=== PATIENT | male | born 1980 | race Caucasian/White ===

== ENCOUNTER 2019-08-31 22:58 | Observation (INO) | payer SELFPAY ==
--- NOTE | 2019-08-31 23:03 | XR_ITS ---
WS: [id number] CHEST XRAY TECHNIQUE: Portable chest. CLINICAL INFORMATION: cough/congestion COMPARISON: January 27, 2019 FINDINGS: Heart: Cardiomegaly. Lungs: Lungs are clear. No consolidation or pleural effusion. Bones: Normal visualized bony structures. XR/XR chest 1V portable [id number] IMPRESSION: Cardiomegaly. Chest otherwise unremarkable.
--- NOTE | 2019-08-31 23:03 | ECG_ITS ---
Measurements Intervals [place] Rate: 100 P: 46 PA: 178 QRS: 29 QRSD: 110 T: 97 QT: 364 QTc: 471 SINUS TACHYCARDIA POSSIBLE LEFT ATRIAL ENLARGEMENT [-0.1mV P WAVE IN V1/V2] NONSPECIFIC T-WAVE ABNORMALITY Compared to ECG 01/27/2019 20:29:06 Sinus rhythm no longer present T-wave abnormality still present Electronically Signed On 09-02-2019 6:38:36 CDT by Arpit Naik M.D. [id number]
--- NOTE | 2019-08-31 23:10 | USCV_ITS ---
Sanjeev Gupta Age: 39 Gender: M : 1980 Exam Date: 08/31/2019 23:42 Ordering Phys: Gela Avila DO Technologist: Nadira Kaur [place] [facility] [place]: PAIN RT HIP. SWELLING HISTORY: Pain Rt hip with swelling PROCEDURES: The venous duplex Doppler examination of both lower extremities was performed in the standard fashion. The following venous structures were evaluated: common femoral vein, profunda vein, proximal portion of the greater saphenous vein, superficial femoral vein, and the popliteal vein. In addition, the posterior tibial and peroneal trunk were evaluated. Serial compression, augmentation maneuvers, and spectral Doppler flow evaluation were performed. FINDINGS: No DVT seen in any vessel examined CONCLUSIONS No evidence of right lower extremity DVT. No evidence of left lower extremity DVT. James Blanco MD (Electronically Signed) Final Date: 01 September 2019 09:04 S
[2019-08-31 23:11] VITALS: BP 197/139; PULSE 108; RESP 20; TEMP 36; O2SAT 97; BMI 29.8
--- NOTE | 2019-08-31 23:11 | W.ED.SOB ---
HPI - SOB/Dyspnea General: Chief Complaint: Shortness of Breath/Dyspnea Stated Complaint: cp Time Seen by Provider: 08/31/19 23:06 History of Present Illness: HPI Narrative: Sanjeev is a 39-year-old male who comes in complaining of shortness of breath. He states he has a history of congestive heart failure but he is uncertain what the cause was. He states he has orthopnea and dyspnea on exertion. He denies any chest pain. He has a cough productive of brown phlegm which he states is his chronic smoker's cough. He does have increased leg pain and swelling more so the right leg than the left. Patient states he is not been on medicines for his high blood pressure and probably 6 months or more. Associated symptoms: Deny abdominal pain, chest congestion, chest pain, diaphoresis, dizziness, extremity pain, fever(s), hemoptysis, nausea, orthopnea, palpitations, polydipsia, syncope or vomiting Review of Systems General: Reports: other (negative unless marked) Const: Denies: fever, chills, body aches, fatigue, malaise or diaphoresis Eyes: Denies: change in vision or blurry vision ENMT: Denies: throat pain, painful swallowing, hoarseness, ear pain, ear discharge, Change in hearing or nasal discharge Card: Denies: chest pain, palpitations, irregular heart rhythm, syncope, pre-syncope, shortness of breath on exertion or shortness of breath when lying down Resp: Reports: shortness of breath and productive cough; Denies: non-productive cough, wheezing, coughing up blood or chest congestion GI: Denies: abdominal pain, nausea, vomiting, vomiting blood, coffee grounds in vomit, diarrhea, constipation, cramping, blood in stool or black tarry stool : Denies: flank pain, difficulty urinating, painful urination, urinary frequency, urinary urgency, decreased urine ouput, urinary incontinence or blood in urine Musc: Denies: neck pain, back pain, extremity pain, extremity swelling, joint pain, joint swelling, joint warmth or joint stiffness Skin/Breast: Denies: rash, skin tenderness or yellow skin Neuro: Denies: headache, numbness in extremities, weakness in extremities, changes in sensation, lack of coordination, difficulty walking, dizziness, vertigo or confusion Endo: Denies: excessive thirst, tired all the time, cold intolerance, excessive sweating, flushing or hot flashes Leodan/Lymph: Denies: easy bruising, easy bleeding, petechiae or enlarged lymph nodes All/Imm: Denies: hives, throat swelling, tongue swelling, facial swelling or acute wheezing PFSH ED PFSH: Medical History Congestive heart failure Hypertension Kidney stones Surgical History H/O lithotripsy Family History (Updated 09/01/19 @ 01:46 by Sarah Trent MD) Family/Other Cancer Stroke Mother Hypertension Other CAD (coronary artery disease) Social History Smoking and tobacco status: current every day smoker Physical Exam Const: COMMON NORMALS: no apparent distress, oriented x3, no limitations, healthy appearing and well nourished EXAM LIMITATIONS: no altered mental status GENERAL APPEARANCE: cooperative, well kempt and well developed ORIENTATION/CONSCIOUSNESS: Yes awake HENMT: COMMON NORMALS: normocephalic, head/scalp atraumatic, hearing grossly normal bilaterally, external ears normal, EAC's normal, external nose normal and moist oral mucous membranes HEAD & SCALP: normal to inspection, normocephalic and atraumatic FACE & SINUS: normal facial exam and face symmetric NOSE: external nose normal and nares normal EXTERNAL EAR: Yes external ears normal EXTERNAL AUDITORY CANAL: EAC's normal MOUTH: oral and palatal mucosa normal and tongue normal Eye: COMMON NORMALS: PERRL, EOMs intact bilaterally, conjunctivae normal and no scleral icterus GENERAL EYE: normal appearance of both eyes and normal light reflex CONJUNCTIVA: Yes conjunctivae normal SCLERA: sclerae normal CORNEA: Yes corneas normal PUPIL: Yes PERRL DIRECT OPHTHALMOSCOPY: Yes normal light reflex Neck/C-Spine: COMMON NORMALS: full ROM, no lymphadenopathy, supple, no meningeal signs and no JVD GENERAL: Yes normal visual inspection and Yes trachea midline CERVICAL SPINE: Yes cervical ROM normal Chest: COMMONS NORMALS: inspection of chest normal and palpation of chest normal Resp: COMMON NORMALS: normal respiratory effort, no retractions, no use of accessory muscles and clear to auscultation bilaterally EFFORT & INSPECTION: Yes able to speak in complete sentences AUSCULTATION: clear to auscultation bilaterally Cardio: COMMON NORMALS: no JVD, regular rate, regular rhythm, S1 normal heart sound, S2 normal heart sound, no gallops, no clicks, no murmurs and no rub JUGULAR VENOUS DISTENTION: no JVD RATE: regular rate RHYTHM: regular rhythm HEART SOUNDS: S1 normal and S2 normal GI: COMMON NORMALS: soft to palpation, non-tender, no hepatosplenomegaly and no masses INSPECTION: Yes normal to inspection PALPATION: Yes soft and Yes no hepatosplenomegaly : COMMON NORMALS: Yes no CVA tenderness BLADDER/KIDNEY EXAM: Yes no CVA tenderness Back/Pelvis: COMMON NORMALS: no CVA tenderness, thoracic and lumbar spine normal to inspection, no thoracic nor lumbar tenderness and thoraco-lumbar ROM normal Extremity: COMMON NORMALS: normal to inspection, full ROM, normal capillary refill, no joint enlargement, no clubbing, cyanosis or edema and no calf tenderness Neuro: COMMON NORMALS: oriented x3, CN's II-XII intact bilaterally, moves all extremities, no focal motor deficits and no sensory deficits noted MENINGEAL SIGNS: Yes no meningeal signs Psych: COMMON NORMALS: mental status grossly normal, thought process normal, cooperative, affect normal, speech normal and activity/motor behavior normal APPEARANCE: Yes well kempt SPEECH: Yes normal speech THOUGHT PROCESS: normal thought process Skin: COMMON NORMALS: no rashes or lesions noted, skin turgor normal, no jaundice, no petechiae and no mottling GENERAL SKIN EXAM: no rashes or lesions noted and turgor normal Course Vital Signs: Vital signs: Vital Signs Temperature 97.9 F 09/01/19 02:00 Pulse Rate 91 09/01/19 02:00 Respiratory Rate 20 H 09/01/19 02:00 Blood Pressure 191/96 09/01/19 02:00 Pulse Oximetry 96 09/01/19 02:00 MDM - SOB/Dyspnea MDM Narrative: Medical decision making narrative: Child is a nice 39-year-old male who comes in complaining of shortness of breath. He denies chest pain but does have orthopnea and dyspnea on exertion. He has a slightly abnormal EKG, elevated troponin and elevated BNP. He is not compliant with taking his high blood pressure medications. His chest x-ray shows mild vascular congestion with cardiomegaly. I believe his presentation and history and lab findings are all consistent with a heart failure exacerbation. The patient is improved with Nitropaste and Lasix. Further care will be dictated by Dr. Fernandes who will admit for the patient. Lab Data: Attestation: I reviewed the patient's lab results. Labs: Lab Results 08/31/19 08/31/19 08/31/19 Range/Units 23:20 23:20 23:20 WBC 11.3 H (4.0-10.0) 10^3/ uL RBC 5.02 (4.1-5.3) 10^6/u L Hgb 15.4 (11.7-16.6) g/dL Hct 45.8 (42.0-52.0) % MCV 91.2 (80-94) fL MCH 30.7 (28.0-34.0) pg MCHC 33.6 (30.0-36.0) g/dL RDW 12.6 (12.1-15.1) % Plt Count 359 (130-400) 10^3/c mm MPV 10.9 H (7.4-10.4) fL Neut % (Auto) 53.6 % Lymph % (Auto) 29.0 % Crane % (Auto) 9.7 % Eos % (Auto) 6.5 % Baso % (Auto) 0.9 % Neut # (Auto) 6.1 (1.8-7.7) 10^3/u L Lymph # (Auto) 3.3 (0.8-4.8) 10^3/u L Crane # (Auto) 1.1 H (0.2-0.9) 10^3/u L Eos # (Auto) 0.7 (0.0-0.8) 10^3/u L Baso # (Auto) 0.1 (0.0-0.1) 10^3/u L Nucleated RBC % (a uto) 0 % Nucleated RBCs # 0.0 /100WBC D-Dimer (0-0.59) ug/mIFE U Sodium 140 (136-145) mmol/L Potassium 4.0 (3.5-5.1) mmol/L Chloride 102 (98-107) mmol/L Carbon Dioxide 25 (22-29) mmol/L Anion Gap 17.0 (5-19) BUN 18 (6-20) mg/dL Creatinine 1.5 H (0.7-1.2) mg/dL GFR Calculation 52.7 L (90-130) mL/min Glucose 91 (65-115) mg/dL Calculated Osmolal ity 286 (285-295) mOsm/k g Calcium 10.0 (8.5-10.5) mg/dL Magnesium 2.1 (1.7-2.3) mg/dL Total Bilirubin 0.6 (0.15-1.2) mg/dL AST 19 (0-40) U/L ALT 18 (0-41) U/L Alkaline Phosphata se 112 (40-130) IU/L Troponin T Baselin e 37 H (0-15) ng/mL NT-Pro-B Natriuret Pep 1246 H (0-125) pg/mL Total Protein 6.9 (6.6-8.7) g/dL Albumin 4.5 (3.5-5.2) g/dL Globulin 2.4 (1.3-4.6) g/dL 08/31/19 Range/Units 23:20 WBC (4.0-10.0) 10^3/ uL RBC (4.1-5.3) 10^6/u L Hgb (11.7-16.6) g/dL Hct (42.0-52.0) % MCV (80-94) fL MCH (28.0-34.0) pg MCHC (30.0-36.0) g/dL RDW (12.1-15.1) % Plt Count (130-400) 10^3/c mm MPV (7.4-10.4) fL Neut % (Auto) % Lymph % (Auto) % Crane % (Auto) % Eos % (Auto) % Baso % (Auto) % Neut # (Auto) (1.8-7.7) 10^3/u L Lymph # (Auto) (0.8-4.8) 10^3/u L Crane # (Auto) (0.2-0.9) 10^3/u L Eos # (Auto) (0.0-0.8) 10^3/u L Baso # (Auto) (0.0-0.1) 10^3/u L Nucleated RBC % (a uto) % Nucleated RBCs # /100WBC D-Dimer <= 0.27 (0-0.59) ug/mIFE U Sodium (136-145) mmol/L Potassium (3.5-5.1) mmol/L Chloride (98-107) mmol/L Carbon Dioxide (22-29) mmol/L Anion Gap (5-19) BUN (6-20) mg/dL Creatinine (0.7-1.2) mg/dL GFR Calculation (90-130) mL/min Glucose (65-115) mg/dL Calculated Osmolal ity (285-295) mOsm/k g Calcium (8.5-10.5) mg/dL Magnesium (1.7-2.3) mg/dL Total Bilirubin (0.15-1.2) mg/dL AST (0-40) U/L ALT (0-41) U/L Alkaline Phosphata se (40-130) IU/L Troponin T Baselin e (0-15) ng/mL NT-Pro-B Natriuret Pep (0-125) pg/mL Total Protein (6.6-8.7) g/dL Albumin (3.5-5.2) g/dL Globulin (1.3-4.6) g/dL Imaging Data^: CXR: My impression: Cardiomegaly with mild pulmonary vascular congestion. US Vascular: My impression: Ultrasound bilateral lower extremity venous Doppler, tech interpretation -negative for DVT EKG Data^: EKG 1: Attestation: I personally reviewed and interpreted this EKG as follows: EKG Interpretation Date: 08/31/19 EKG interpretation time: 23:15 Interpretation: Normal sinus rhythm at 100 beats a minute, artifact present V2, nonspecific T wave inversions laterally. Normal intervals, normal axis, no blocks. Discharge Plan Discharge Patient Disposition: Placed in Observation Admit Provider: Sarah Trent Clinical Impression: Congestive heart failure Qualifiers: Heart failure type: unspecified Heart failure chronicity: acute on chronic Qualified Code(s): I50.9 - Heart failure, unspecified Condition: Stable Discharge Date/Time: 09/01/19 01:58 Coding Level of Care Code ED Administrative Specialist for g Fwd Exam Comprehensive
[2019-08-31 23:25] LABS: Basophils # 0.1 10^3/uL (0.0-0.1); Basophils % 0.9 %; Eosinophils # 0.7 10^3/uL (0.0-0.8); Eosinophils % 6.5 %; Hematocrit 45.8 % (42.0-52.0); Hemoglobin 15.4 g/dL (11.7-16.6); Lymphocytes # 3.3 10^3/uL (0.8-4.8); Mean Corpuscular HGB Conc 33.6 g/dL (30.0-36.0); Mean Corpuscular Hemoglobin 30.7 pg (28.0-34.0); Mean Corpuscular Volume 91.2 fL (80-94); Mean Platelet Volume 10.9 fL (7.4-10.4); Monocytes # 1.1 10^3/uL (0.2-0.9); Monocytes % 9.7 %; Neutrophils # 6.1 10^3/uL (1.8-7.7); Neutrophils % 53.6 %; Nucleated Red Blood Cells % 0 %; Platelet Count 359 10^3/cmm (130-400); Red Blood Count 5.02 10^6/uL (4.1-5.3); Red Cell Distribution Width 12.6 % (12.1-15.1); White Blood Count 11.3 10^3/uL (4.0-10.0)
[2019-08-31 23:41] LABS: Troponin(5th) Baseline 37 ng/mL (0-15)
[2019-08-31 23:43] LABS: D Dimer <= 0.27 ug/mIFEU (0-0.59)
[2019-08-31 23:50] LABS: Alanine Aminotransferase 18 U/L (0-41); Albumin Level 4.5 g/dL (3.5-5.2); Alkaline Phosphatase 112 IU/L (40-130); Aspartate Amino Transferase 19 U/L (0-40); Blood Urea Nitrogen 18 mg/dL (6-20); Carbon Dioxide 25 mmol/L (22-29); Chloride 102 mmol/L (98-107); Globulin 2.4 g/dL (1.3-4.6); Glomerular Filtration Rate 52.7 mL/min (90-130); Glucose 91 mg/dL (65-115); Magnesium 2.1 mg/dL (1.7-2.3); NT Pro B Type Natriuretic Pept 1246 pg/mL (0-125); Osmolality Calculated 286 mOsm/kg (285-295); Sodium 140 mmol/L (136-145); Total Bilirubin 0.6 mg/dL (0.15-1.2); Total Protein 6.9 g/dL (6.6-8.7)
[2019-08-31] MEDS: nitroglycerin 1 gm/inch oint Pkt 1 INCH TOPICAL (23:59)
[2019-08-31] MEDS: aspirin 325 mg Tablet PO (23:59)
[2019-09-01] VITALS (11 sets, daily range): BP systolic 142–191; BP diastolic 76–137; PULSE 66–105; RESP 14–20; TEMP 36.4–36.8; O2SAT 92–98
--- NOTE | 2019-09-01 01:03 | ECG_ITS ---
Measurements Intervals [place] Rate: 86 P: 44 UT: 191 QRS: 1 QRSD: 112 T: 109 QT: 387 QTc: 464 SINUS RHYTHM LEFT ATRIAL ENLARGEMENT [-0.15mV P WAVE IN V1/V2] MODERATE INTRAVENTRICULAR CONDUCTION DELAY [110+ ms QRS DURATION] MODERATE T-WAVE ABNORMALITY, CONSIDER LATERAL ISCHEMIA [-0.1+ mV T WAVE IN I/ I/aVL/V5/V6] Compared to ECG 01/27/2019 20:29:06 Atrial abnormality now present Intraventricular conduction delay now present Possible ischemia now present T-wave abnormality still present Electronically Signed On 09-02-2019 6:44:39 CDT by Arpit Naik M.D. [id number]
--- NOTE | 2019-09-01 01:09 | PC.NURSE ---
Patient voided 900 ml.
[2019-09-01 01:19] LABS: Troponin 5 2HR 39.24 ng/mL (0-15); Troponin 5 2HR Delta 2.24 ABS# (0-10)
--- NOTE | 2019-09-01 01:23 | P.HP_ITS ---
Providers/Chief Complaint Admitting Physician: Sarah Trent MD Primary Care Provider: None Chief Complaint: Shortness of breath History of Present Illness Sanjeev Gupta is a 39 year old male who presented to the emergency room with chief complaint of increasing shortness of breath. Symptoms started a couple of days ago. He states that his been having more shortness of breath with exertion as well as when lying in bed. He has had a little bit of a cough occasionally productive. Denies any chest pain. Complains of some swelling in his right lower extremity more so than his left as well as pain in his right hip area. Denies any fevers. No sore throat. No upper respiratory symptoms. Denies any GI symptoms. No difficulty with urination. He has a history of ch ronic systolic CHF with an ejection fraction of 25%. He says he was admitted at [facility] one time when he was diagnosed. Describes having significant acute renal failure and hypertension which she is always assumed because the heart failure. Denies having ever had cardiac catheterization or diagnosis of coronary artery disease. He did previously drink alcohol quite heavily and admits to prior methamphetamine use though none in some time. He continues to smoke cigarettes as well as marijuana. Patient denies any recent sick contacts. In the emergency room, initial blood pressures were 190s over 140s. Systolic pressure was as high as 2 10-2 20 at one point. Patient received some Lasix, nitroglycerin with some improvement in his blood pressure. He has been out of medications for some time due to financial challenges. He does not follow regularly with a doctor. Chest x-ray showed cardiomegaly. BNP was elevated. He is being admitted for initiation of treatment and close monitoring. Patient does have a history of kidney stones. Review of Systems Const: Denies: fever, chills or change in weight Eyes: Denies: change in vision ENMT: Denies: throat pain or nasal congestion Card: Reports: edema; Denies: chest pain or palpitations Resp: Reports: shortness of breath and productive cough; Denies: pain on inspiration or coughing up blood GI: Reports: difficulty swallowing; Denies: abdominal pain, nausea, vomiting, diarrhea, constipation or blood in stool : Denies: urinary frequency Musc: Reports: extremity pain (right leg and hip); Denies: redness or joint warmth Skin/Breast: Denies: rash or sores Neuro: Denies: headache, numbness in extremities or weakness in extremities Psych: Denies: anxiety or depression Endo: Denies: excessive sweating Leodan/Lymph: Denies: easy bruising or easy bleeding Medications/Allergies Home Medications Medication Instructions Recorded Confirmed Last Taken Type No Known Home Medications 08/31/19 08/31/19 Unknown History Allergies Allergy/AdvReac Type Severity Reaction Status Date / Time Penicillins Allergy Unknown Verified 08/31/19 23:11 PFSH Acute PFSH: Medical History Congestive heart failure Hypertension Kidney stones Surgical History H/O lithotripsy Family History Family/Other Cancer Stroke Mother Hypertension Other CAD (coronary artery disease) Social History (Updated 09/01/19 @ 09:01 by Sarah Trent MD) Smoking and tobacco status: current every day smoker cigarettes [ Other cigarette details: ~1/2 ppd ] Alcohol intake: current Alcohol intake frequency: few times a week Substance/Drug Use: current Substance/Drug use frequency: daily Substance/Drug use type: Marijuana Vitals/I&O/Wt Last Vital Signs Temp 96.8 F L 08/31/19 23:11 Pulse 98 09/01/19 00:28 Resp 16 09/01/19 00:28 BP 186/125 09/01/19 00:28 Pulse Ox 98 09/01/19 00:28 Weight last 48 hrs Weight 99.79 kg Physical Exam Const: COMMON NORMALS: oriented x3 and alert HENMT: COMMON NORMALS: normocephalic, head/scalp atraumatic and moist oral mucous membranes TEETH & GINGIVA: Yes fair dentition Eye: COMMON NORMALS: PERRL and EOMs intact bilaterally Neck/C-Spine: COMMON NORMALS: supple Resp: COMMON NORMALS: no use of accessory muscles AUSCULTATION: clear to auscultation bilaterally and no rales Cardio: COMMON NORMALS: regular rhythm JUGULAR VENOUS DISTENTION: JVD positive to the level of the angle of the jaw PALPATION: abnormal PMI displaced PMI and palpable S3 RATE: tachycardic PERIPHERAL PULSES: other (equal pulses) GI: COMMON NORMALS: normal to inspection, nondistended, normoactive bowel sounds, soft to palpation and non-tender Extremity: COMMON NORMALS: normal capillary refill and no calf tenderness GENERAL: Yes edema (1+ pretibial) OTHER: Right lower extremity with good range of motion at the hip and knee joints. No focal area of significant palpable tenderness over the lateral right hip. Nor at the right knee. Neuro: COMMON NORMALS: moves all extremities and no sensory deficits noted Psych: COMMON NORMALS: cooperative Skin: COMMON NORMALS: no rashes or lesions noted Data : 09/01/19 04:50 09/01/19 04:50 Other Labs: Laboratory Tests 08/31/19 08/31/19 09/01/19 23:20 23:20 01:00 Troponin T Baseline 37 H Troponin T 120 Minute 39.24 H NT-Pro-B Natriuret Pep 1246 H CXR: I personally reviewed and interpreted this imaging study as follows: My impression: Significant cardiomegaly, appears increased from previous study. Some haziness in the right but no definite pulmonary edema acutely noted A&P Assessment and plan (1) Congestive heart failure: Status: Chronic Qualifiers: Heart failure chronicity: acute on chronic Heart failure type: systolic Qualified Code(s): I50.23 - Acute on chronic systolic (congestive) heart failure (2) Hypertension: Presenting with hypertensive urgency Status: Chronic Qualifiers: Hypertension type: renovascular hypertension Qualified Code(s): I15.0 - Renovascular hypertension (3) Chronic kidney disease, stage II (mild): Status: Chronic (4) Marijuana use: Status: Chronic (5) Nicotine dependence, cigarettes, uncomplicated: Status: Chronic (6) Pain of right lower extremity: Unremarkable at the time of my examination. He did have a ultrasound of the right leg done in the emergency room that was reportedly negative. Status: Acute Additional A&P Information Observation admission Continue IV diuresis daily along with nitroglycerin currently Monitor I's and O's closely Monitor for symptoms of nephrolithiasis Start SRI inhibitor Monitor renal function Hold further antihypertensive medications for now until we see how blood pressure responds Continue serial cardiac enzymes Echocardiogram Prophylactic Lovenox Follow-up official ultrasound report in the right lower extremity Monitor for recurrent pain in the lower extremity Nicotine patch if needed Supportive care otherwise Full code Plans were discussed with patient and he was given an opportunity to ask questions Attestations Medical Necessity Statement*: Currently anticipated stay less than 2 midnights in a patient with chronic systolic CHF for unclear etiology at this point in time who has chronic difficulties sustaining medical care and medication management secondary to finances. He presents with what appears to be hypertensive urgency associated with shortness of breath. Given no medication management at home presently, anticipating that he may respond quickly to care. Plans are as noted. Coding Level of Care Code Acute Residential Instructor for Yaneth Justin Diagnoses Congestive heart failure I50.23 Heart failure chronicity: acute on chronic Heart failure type: systolic Hypertension I15.0 Hypertension type: renovascular hypertension Chronic kidney disease, stage II (mild) N18.2 Marijuana use F12.90 Nicotine dependence, cigarettes, uncomplicated F17.210 Pain of right lower extremity M79.604
[2019-09-01] MEDS: acetaminophen 325 mg Tablet 650 MG PO ×2 (02:24→09:11)
--- NOTE | 2019-09-01 05:03 | ECG_ITS ---
Measurements Intervals [place] Rate: 100 P: 46 DC: 178 QRS: 29 QRSD: 110 T: 97 QT: 364 QTc: 471 SINUS TACHYCARDIA POSSIBLE LEFT ATRIAL ENLARGEMENT [-0.1mV P WAVE IN V1/V2] NONSPECIFIC T-WAVE ABNORMALITY Compared to ECG 01/27/2019 20:29:06 Sinus rhythm no longer present T-wave abnormality still present Electronically Signed On 09-02-2019 6:44:31 CDT by Arpit Naik M.D. [email or web address]
[2019-09-01 05:22] LABS: Basophils # 0.1 10^3/uL (0.0-0.1); Basophils % 0.8 %; Eosinophils # 0.8 10^3/uL (0.0-0.8); Hematocrit 45.3 % (42.0-52.0); Hemoglobin 15.2 g/dL (11.7-16.6); Lymphocytes # 3.7 10^3/uL (0.8-4.8); Lymphocytes % 32.7 %; Mean Corpuscular HGB Conc 33.6 g/dL (30.0-36.0); Mean Corpuscular Hemoglobin 30.9 pg (28.0-34.0); Mean Corpuscular Volume 92.1 fL (80-94); Mean Platelet Volume 10.9 fL (7.4-10.4); Monocytes # 0.9 10^3/uL (0.2-0.9); Monocytes % 8.2 %; Neutrophils # 5.7 10^3/uL (1.8-7.7); Neutrophils % 50.9 %; Nucleated Red Blood Cells % 0 %; Platelet Count 333 10^3/cmm (130-400); Red Blood Count 4.92 10^6/uL (4.1-5.3); Red Cell Distribution Width 12.5 % (12.1-15.1); White Blood Count 11.2 10^3/uL (4.0-10.0)
[2019-09-01 05:49] LABS: Anion Gap 17.2 (5-19); Blood Urea Nitrogen 17 mg/dL (6-20); Calcium 9.4 mg/dL (8.5-10.5); Carbon Dioxide 27 mmol/L (22-29); Chloride 100 mmol/L (98-107); Glomerular Filtration Rate 52.7 mL/min (90-130); Glucose 102 mg/dL (65-115); Osmolality Calculated 289 mOsm/kg (285-295); Potassium 3.2 mmol/L (3.5-5.1); Sodium 141 mmol/L (136-145)
[2019-09-01] MEDS: enoxaparin 40 mg/0.4 mL Syringe SUBCUT (07:01)
[2019-09-01] MEDS: FUROsemide 10 mg/mL SDV 4mL 40 MG IVP ×2 (07:02)
[2019-09-01] MEDS: nitroglycerin 1 gm/inch oint Pkt 1 INCH TOPICAL ×2 (07:02→12:57)
[2019-09-01] MEDS: lisinopril 10 mg Tablet PO (08:10)
[2019-09-01] MEDS: aspirin 81 mg EC Tablet PO (08:10)
--- NOTE | 2019-09-01 09:16 | USCV_ITS ---
Sanjeev Gupta Age: 39 Gender: M : 1980 Exam Date: 09/01/2019 09:34 Ordering Phys: Sarah Trent MD Technologist: Janis Wood Exam Location: [facility] [place] Indication: CHF, HTN BP: 188 / 125 HR: 80 Rhythm: Sinus Technical Quality: Adequate MEASUREMENTS (Male / Female) Normal Values 2D ECHO LV Diastolic Diameter PLAX 4.7 cm 4.2 - 5.9 / 3.9 - 5.3 cm LV Systolic Diameter PLAX 3.5 cm LV Chamber Size 3.9 cm IVS Diastolic Thickness 1.1 cm 0.6 - 1.0 / 0.6 - 0.9 cm IVS Systolic Thickness 1.3 cm LVPW Diastolic Thickness 1.6 cm 0.6 - 1.0 / 0.6 - 0.9 cm LVPW Systolic Thickness 2.4 cm RV Chamber Size 2.5 cm LVOT Diameter 2.1 cm LV Ejection Fraction 2D Teich 49.1 % LV Ejection Fraction MOD 2C 33.3 % LV Ejection Fraction 2C AL 31.5 % LA Diameter 3.6 cm LA Width 3.1 cm LA Height 4.7 cm RA Width 3.0 cm RA Height 4.7 cm Aorta at Sinotubular Diameter 2.8 cm M-MODE LV Diastolic Diameter MM 6.3 cm 4.2 - 5.9 / 3.9 - 5.3 cm LV Systolic Diameter MM 4.7 cm LV Ejection Fraction MM Teich 49.7 % IVS Diastolic Thickness MM 1.0 cm 0.6 - 1.0 / 0.6 - 0.9 cm IVS Systolic Thickness MM 1.5 cm LVPW Diastolic Thickness MM 1.2 cm 0.6 - 1.0 / 0.6 - 0.9 cm LVPW Systolic Thickness MM 2.0 cm Aortic Annulus Diameter 3.1 cm LA Ao Ratio MM 1.2 MV E Point Septal Separation 1.6 cm DOPPLER AV Peak Velocity 126.0 cm/s LVOT Peak Velocity 107.0 cm/s AV Area Cont Eq vti 3.2 cm squared AV Area Cont Eq pk 2.9 cm squared MV Area PHT 7.6 cm squared Mitral E to A Ratio 3.6 MV E' Velocity 12.0 cm/s Mitral E to MV E' Ratio 6.8 Mitral E to LV E' Lateral Ratio 8.2 Mitral E to LV E' Septal Ratio 5.9 TR Peak Velocity 161.0 cm/s TR Peak Gradient 10.4 mmHg TV Peak E Velocity 77.0 cm/s Right Atrial Pressure 3.0 mmHg Pulmonary Artery Systolic Pressu 13.4 mmHg PV Peak Velocity 111.0 cm/s RV Acceleration Time 0.1 s RV Ejection Time 0.4 s RV AcT/ET 0.4 FINDINGS Left Ventricle Normal LV size with diminished ejection fraction of 35%. Diffuse hypokinesia of the left ventricle. Mildly dilated left ventricle.mild left ventricular hypertrophy. Right Ventricle Normal right ventricular size and systolic function. Right Atrium The right atrium is normal in size. Left Atrium The left atrium is normal in size. Mitral Valve Thickened mitral valve. Trace to mild mitral valve regurgitation. Aortic Valve Thickened aortic valve. Tricuspid Valve Trace tricuspid valve regurgitation. Pulmonic Valve Pulmonic valve not well visualized. Pericardium No significant pericardial effusion Aorta Normal aortic annulus size. CONCLUSIONS Mildly dilated left ventricle with diminished ejection fraction of 35%. Diffuse hypokinesia of the left ventricle. Mild left ventricular hypertrophy. Thickened mitral valve. Trace to mild mitral valve regurgitation. Trace tricuspid valve regurgitation. Thickened aortic valve. There is no pericardial effusion. There are no intracardiac masses. Compared to the previous study from 08/26/2017, there is significant improvement in the LV ejection fraction Dr Kimber Evans MD FAC (Electronically Signed) Final Date: 01 September 2019 14:19 S
--- NOTE | 2019-09-01 09:37 | PC.CHAP ---
Pastoral Care Encounter/Spiritual Assessment Type of Contact [] Declined knife cutter visit [] Patient/Family/Request visit [] Outpatient visit [] Follow-up visit [] Physician referral [] Code/Alert [x] Routine visit [] Staff referral [] Actively dying [] Patient sleeping [] Family support [] [] Out of room [] Palliative care [] [] Receiving care in room [] Pre-surgical visit [] Trauma [] Long length of stay [] ICU visit [] Other: Relational/Emotional Strength [] Patient feels connected with others/family/visitors/staff [] Distress [] Loneliness/isolation [] Abandonment Spirituality of Patient [] Person of Pau [] Attends Jehovah'S Witness of their Pau [] Believes in Prayer [] Reads Bible or Mosque materials [] There are Spiritual issues to be addressed Early Childhood Interventions [x] Prayer [] Active listening [] Non-anxious presence [] Spiritual/emotional support [] Crisis/trauma care [] Spiritual counseling [] Bereavement support [] Provided bereavement packet [] Provided Bible/devotional materials [] Provided toy/stuffed animal, coloring book to patient or family member [] Provided Communion [] Anointing/[place] [] Salvation [x] Completed spiritual assessment [] Other: Impact on Illness or Injury [] Angry [] Fearful [] Anxious [] Often cries [] Exhaustion [] Unable to work [] Unable to attend jehovah's witness [] Unable to walk/stand [] Unable to read [] Unable to drive [] Unable to eat/drink [] Unable to sleep [] Unable to be with family [] Patient intubated [] Other: Summary patient has severe head ache. Time spent with patient 10 min
--- NOTE | 2019-09-01 10:53 | PC.RESP ---
Smoking Cessation information and a schedule of pending classes sent for out patient purposes.
--- NOTE | 2019-09-01 11:34 | P.PN_ITS ---
Subjective Subjective: Interval history: Chart reviewed. Quite hypertensive on admission, blood pressure seems to be gradually improving, most recent 177/95. So far has had 1100 mL urine output. Patient seen and examined, resting in bed, complains of persistent headache which I suspect is due to the nitroglycerin paste that he has on. We will discontinue this and monitor. He states he is b een hypertensive for at least 5 years. Following discontinuation of nitroglycerin seems to be doing better though still has residual headache. Blood pressure has significantly improved throughout the day. Medications: Reviewed: Yes Medication Review Details: Active Medications Generic Name Dose Route Start Last Admin Trade Name Freq PRN Reason Stop Dose Admin Acetaminophen 650 mg 09/01/19 01:54 09/01/19 09:11 Tylenol PO 650 mg Q6H PRN Administration Mild/Mod Pain Or Temp >/= 101 Aspirin 81 mg 09/01/19 09:00 09/01/19 08:10 Aspirin Ec PO 81 mg DAILY BELINDA Administration Bisacodyl 10 mg 09/01/19 06:30 Dulcolax PO DAILY PRN CONSTIPATION Enoxaparin Sodium 40 mg 09/01/19 06:45 09/01/19 07:01 Lovenox SUBCUT 40 mg Q24H BELINDA Administration Furosemide 40 mg 09/02/19 06:00 Lasix IVP Q24H BELINDA Lisinopril 10 mg 09/01/19 09:00 09/01/19 08:10 Prinivil PO 10 mg DAILY BELINDA Administration Nicotine 1 patch 09/01/19 08:54 Nicoderm 14 Mg P atch TRANSDERMA DAILY PRN nicotine withdraw al Nitroglycerin 1 inch 09/01/19 07:00 09/01/19 07:02 Nitro-Bid TOPICAL 1 inch Q6H BELINDA Administration Ondansetron HCl 4 mg 09/01/19 01:54 Zofran IVP Q6H PRN NAUSEA AND VOMITI NG Potassium Chloride 20 meq 09/02/19 09:00 Klor-Con 10 PO DAILY BELINDA Penicillins Allergy (Verified 08/31/19 23:11) Unknown Vitals/I&O/Wt Last Vital Signs Temp 97.9 F 09/01/19 11:19 Pulse 83 09/01/19 11:19 Resp 16 09/01/19 11:19 BP 177/95 09/01/19 11:19 Pulse Ox 92 09/01/19 11:19 08/31/19 09/01/19 09/01/19 22:59 06:59 14:59 Intake Total 100 / 100 360 / 360 Output Total 400 / 400 700 / 700 Balance -300 / -300 -340 / -340 Weight last 48 hrs Weight 99.79 kg Physical Exam Const: COMMON NORMALS: no apparent distress and oriented x3 GENERAL APPEARANCE: cooperative and comfortable ORIENTATION/CONSCIOUSNESS: Yes awake HENMT: COMMON NORMALS: normocephalic, head/scalp atraumatic, hearing grossly normal bilaterally and moist oral mucous membranes HEAD & SCALP: no rmocephalic and atraumatic Eye: COMMON NORMALS: PERRL, EOMs intact bilaterally and conjunctivae normal CONJUNCTIVA: Yes conjunctivae normal PUPIL: Yes PERRL Neck/C-Spine: COMMON NORMALS: full ROM GENERAL: Yes normal visual inspection and Yes trachea midline Resp: COMMON NORMALS: normal respiratory effort, no retractions, no use of accessory muscles and clear to auscultation bilaterally EFFORT & INSPECTION: Yes able to speak in complete sentences, Yes symmetric chest movement and No tachypneic AUSCULTATION: clear to auscultation bilaterally Cardio: COMMON NORMALS: regular rate, regular rhythm, S1 normal heart sound, S2 normal heart sound and no murmurs RATE: regular rate RHYTHM: regular rhythm HEART SOUNDS: S1 normal and S2 normal GI: COMMON NORMALS: normal to inspection, nondistended, normoactive bowel sounds, soft to palpation and non-tender PALPATION: Yes soft Extremity: COMMON NORMALS: normal to inspection, full ROM, no clubbing, cyanosis or edema and no pedal edema Neuro: COMMON NORMALS: oriented x3, moves all extremities, no focal motor deficits, no sensory deficits noted and gait normal Psych: COMMON NORMALS: mental status grossly normal, thought process normal, cooperative, affect normal and speech normal SPEECH: Yes normal speech THOUGHT PROCESS: normal thought process Skin: COMMON NORMALS: no rashes or lesions noted, no jaundice, no petechiae and no mottling GENERAL SKIN EXAM: no rashes or lesions noted Data : 09/01/19 04:50 09/01/19 04:50 A&P Assessment and plan (1) Congestive heart failure: -Has acutely decompensated chronic systolic CHF as evidenced by increased dyspnea, BNP elevation (1246) -Last echo done in 08/2017 showed an ejection fraction of 25% with grade 3 diastolic dysfunction and moderate TR. Repeat echo: EF=35%, diffuse LV hypokinesia, mildly dilated LV, mild LVH, trace to mild MR, trace TR -Noted cardiomegaly on chest x-ray -On IV diuresis with Lasix -Continue to monitor ins and outs, daily weights -Cardiac diet as tolerated; fluid restriction (2 L/day) -Continued monitoring of vital signs -Supplemental oxygen as needed, continue to monitor respiratory status -Telemetry monitoring Status: Chronic Qualifiers: Heart failure chronicity: acute on chronic Heart failure type: systolic Qualified Code(s): I50.23 - Acute on chronic systolic (congestive) heart failure (2) Hypertension: -presented with hypertensive urgency likely due to medication non- compliance (no insurance and cannot afford meds) -has had issues with high BP in the past -continue ACEi, lasix; would avoid aggressive BP control -continued monitoring of BP Status: Chronic Qualifiers: Hypertension type: renovascular hypertension Qualified Code(s): I15.0 - Renovascular hypertension (3) Chronic kidney disease, stage II (mild): -has known CKD stage 2; baseline Cr appears to be around 1-1.3 -has superimposed RAMÓN currently -on IV diuresis -continue to monitor renal function -avoid nephrotoxins, renally dose meds Status: Chronic (4) Pain of right lower extremity: -negative DVT on venous duplex -pain control as needed Status: Acute (5) Nicotine dependence, cigarettes, uncomplicated: -nicotine replacement therapy Status: Chronic (6) Marijuana use: Status: Chronic Additional A&P Information -Obesity: BMI-30 kg/m2 -prior hx of EtOH abuse and methamphetamine abuse -hx of nephrolithiasis requiring R ureteral stent placement and removal as well as ESWL -mild hypokalemia; replace K as needed -cardiac diet as tolerated -DVT ppx with lovenox -Dispo: home -Code status: FULL code Attestations Medical Necessity Statement*: Patient requires hospitalization for continued IV diuresis secondary to acutely decompensated systolic CHF as well as management of hypertensive urgency. Time Spent in Patient Care: Greater than 35 minutes (>than 50% of time spent in counselling and/or direct pt care on unit) . Coding Level of Care Code Acute [place] [facility] Feeder for [facility] Fwd Exam Comprehensive Diagnoses Congestive heart failure I50.23 Heart failure chronicity: acute on chronic Heart failure type: systolic Hypertension I15.0 Hypertension type: renovascular hypertension Chronic kidney disease, stage II (mild) N18.2 Pain of right lower extremity M79.604 Nicotine dependence, cigarettes, uncomplicated F17.210 Marijuana use F12.90
[2019-09-01] MEDS: naproxen 500 mg Tablet PO (16:01)
[2019-09-01] MEDS: nicotine 14 mg Patch 1 PATCH TRANSDERMA (17:59)
[2019-09-02] VITALS (7 sets, daily range): BP systolic 140–180; BP diastolic 89–132; PULSE 76–100; RESP 16–20; TEMP 36.4–36.5; O2SAT 93–98
[2019-09-02 01:28] LABS: Add Urine Microscopic? YES; Bilirubin Urine Neg (NEGATIVE); Blood Urine 3+ (Negative); Glucose Urine UA Norm (Normal); Ketones Urine Negative (Negative); Leukocyte Esterase Urine Negative (Negative); Nitrate Urine Negative (Negative); Protein Urine Neg (Negative); Urine Appearance Clear (CLEAR); Urine Color Yellow (Yellow); Urobilinogen Urine Norm (Negative); pH Urine 7 (5-7)
[2019-09-02 01:29] LABS: Bacteria Urine 1+; Squamous Epithelial Cell Urine 0-4 (0-5); WBC Urine 0-4 /hpf (0-5)
[2019-09-02 05:33] LABS: Basophils # 0.1 10^3/uL (0.0-0.1); Basophils % 0.7 %; Eosinophils # 0.8 10^3/uL (0.0-0.8); Eosinophils % 6.4 %; Hematocrit 48.7 % (42.0-52.0); Hemoglobin 16.3 g/dL (11.7-16.6); Lymphocytes # 3.5 10^3/uL (0.8-4.8); Lymphocytes % 29.3 %; Mean Corpuscular HGB Conc 33.5 g/dL (30.0-36.0); Mean Corpuscular Hemoglobin 31.1 pg (28.0-34.0); Mean Corpuscular Volume 92.9 fL (80-94); Mean Platelet Volume 10.9 fL (7.4-10.4); Monocytes % 8.2 %; Neutrophils # 6.5 10^3/uL (1.8-7.7); Neutrophils % 55.1 %; Nucleated Red Blood Cells % 0 %; Platelet Count 345 10^3/cmm (130-400); Red Blood Count 5.24 10^6/uL (4.1-5.3); Red Cell Distribution Width 12.8 % (12.1-15.1); White Blood Count 11.8 10^3/uL (4.0-10.0)
[2019-09-02 05:55] LABS: Anion Gap 18.6 (5-19); Blood Urea Nitrogen 21 mg/dL (6-20); Calcium 9.7 mg/dL (8.5-10.5); Carbon Dioxide 24 mmol/L (22-29); Chloride 101 mmol/L (98-107); Creatinine Clr Calc Pharmacy 100.9633; Glomerular Filtration Rate 62.1 mL/min (90-130); Glucose 104 mg/dL (65-115); Magnesium 2.3 mg/dL (1.7-2.3); Osmolality Calculated 287 mOsm/kg (285-295); Phosphorus 3.8 mg/dL (2.5-4.5); Potassium 3.6 mmol/L (3.5-5.1); Sodium 140 mmol/L (136-145)
[2019-09-02] MEDS: enoxaparin 40 mg/0.4 mL Syringe SUBCUT (05:57)
[2019-09-02] MEDS: FUROsemide 10 mg/mL SDV 4mL 40 MG IVP (05:57)
[2019-09-02] MEDS: aspirin 81 mg EC Tablet PO (08:14)
[2019-09-02] MEDS: lisinopril 10 mg Tablet PO (08:15)
--- NOTE | 2019-09-02 09:22 | P.PN_ITS ---
Subjective Subjective: Interval history: Continues to be hypertensive. AM labs noted with improved Cr. Patient resting in bed, no apparent distress, denies WAYNE, chest pain, SOB, feels much better and would like to go home. If BP improves, this is a possibility. Has been ambulating several times in the hallway. Medications: Reviewed: Yes Medication Review Details: Active Medications Generic Name Dose Route Start Last Admin Trade Name Freq PRN Reason Stop Dose Admin Acetaminophen 650 mg 09/01/19 01:54 09/01/19 09:11 Tylenol PO 650 mg Q6H PRN Administration Mild/Mod Pain Or Temp >/= 101 Aspirin 81 mg 09/01/19 09:00 09/02/19 08:14 Aspirin Ec PO 81 mg DAILY BELINDA Administration Bisacodyl 10 mg 09/01/19 06:30 Dulcolax PO DAILY PRN CONSTIPATION Enoxaparin Sodium 40 mg 09/01/19 06:45 09/02/19 05:57 Lovenox SUBCUT 40 mg Q24H BELINDA Administration Furosemide 40 mg 09/02/19 06:00 09/02/19 05:57 Lasix IVP 40 mg Q24H BELINDA Administration Lisinopril 10 mg 09/01/19 09:00 09/02/19 08:15 Prinivil PO 10 mg DAILY BELINDA Administration Naproxen 500 mg 09/01/19 15:38 09/01/19 16:01 Naprosyn PO 500 mg Q12H PRN Administration HEADACHE Nicotine 1 patch 09/01/19 08:54 09/01/19 17:59 Nicoderm 14 Mg P atch TRANSDERMA 1 patch DAILY PRN Administration nicotine withdraw al Ondansetron HCl 4 mg 09/01/19 01:54 Zofran IVP Q6H PRN NAUSEA AND VOMITI NG Potassium Chloride 20 meq 09/02/19 09:00 09/02/19 08:15 Klor-Con 10 PO 20 meq DAILY BELINDA Administration Penicillins Allergy (Verified 08/31/19 23:11) Unknown Vitals/I&O/Wt Last Vital Signs Temp 97.7 F 09/02/19 07:42 Pulse 100 09/02/19 08:09 Resp 17 09/02/19 07:42 BP 140/110 09/02/19 07:59 Pulse Ox 98 09/02/19 08:09 0409/02/19 09/02/19 22:59 06:59 14:59 Intake Total 530 / 1130 360 / 360 Output Total 1350 / 1350 Balance 530 / 130 -990 / -990 Weight last 48 hrs Weight 112.973 kg Weight 99.79 kg Physical Exam Const: COMMON NORMALS: no apparent distress and oriented x3 GENERAL APPEARANCE: cooperative and comfortable ORIENTATION/CONSCIOUSNESS: Yes awake HENMT: COMMON NORMALS: normocephalic, head/scalp atraumatic, hearing grossly normal bilaterally and moist oral mucous membranes HEAD & SCALP: no rmocephalic and atraumatic Eye: COMMON NORMALS: PERRL, EOMs intact bilaterally and conjunctivae normal CONJUNCTIVA: Yes conjunctivae normal PUPIL: Yes PERRL Neck/C-Spine: COMMON NORMALS: full ROM GENERAL: Yes normal visual inspection and Yes trachea midline Resp: COMMON NORMALS: normal respiratory effort, no retractions, no use of accessory muscles and clear to auscultation bilaterally EFFORT & INSPECTION: Yes able to speak in complete sentences, Yes symmetric chest movement and No tachypneic AUSCULTATION: clear to auscultation bilaterally Cardio: COMMON NORMALS: regular rate, regular rhythm, S1 normal heart sound, S2 normal heart sound and no murmurs RATE: regular rate RHYTHM: regular rhythm HEART SOUNDS: S1 normal and S2 normal GI: COMMON NORMALS: normal to inspection, nondistended, normoactive bowel sounds, soft to palpation and non-tender PALPATION: Yes soft Extremity: COMMON NORMALS: normal to inspection, full ROM, no clubbing, cyanosis or edema and no pedal edema Neuro: COMMON NORMALS: oriented x3, moves all extremities, no focal motor deficits, no sensory deficits noted and gait normal Psych: COMMON NORMALS: mental status grossly normal, thought process normal, cooperative, affect normal and speech normal SPEECH: Yes normal speech THOUGHT PROCESS: normal thought process Skin: COMMON NORMALS: no rashes or lesions noted, no jaundice, no petechiae and no mottling GENERAL SKIN EXAM: no rashes or lesions noted Data : 09/02/19 05:14 09/02/19 05:14 A&P Assessment and plan (1) Congestive heart failure: -Has acutely decompensated chronic systolic CHF as evidenced by increased dyspnea, BNP elevation (1246) -Last echo done in 08/2017 showed an ejection fraction of 25% with grade 3 diastolic dysfunction and moderate TR. Repeat echo: EF=35%, diffuse LV hypokinesia, mildly dilated LV, mild LVH, trace to mild MR, trace TR -Noted cardiomegaly on chest x-ray -On IV diuresis with Lasix -Continue to monitor ins and outs, daily weights -Cardiac diet as tolerated; fluid restriction (2 L/day) -Continued monitoring of vital signs -Supplemental oxygen as needed, continue to monitor respiratory status -Telemetry monitoring Status: Chronic Qualifiers: Heart failure chronicity: acute on chronic Heart failure type: systolic Qualified Code(s): I50.23 - Acute on chronic systolic (congestive) heart failure (2) Hypertension: -presented with hypertensive urgency likely due to medication non- compliance (no insurance and cannot afford meds) -has had issues with high BP in the past -continue ACEi, lasix; would avoid aggressive BP control -continued monitoring of BP Status: Chronic Qualifiers: Hypertension type: renovascular hypertension Qualified Code(s): I15.0 - Renovascular hypertension (3) Chronic kidney disease, stage II (mild): -has known CKD stage 2; baseline Cr appears to be around 1-1.3 -RAMÓN now resolved -on IV diuresis -continue to monitor renal function -avoid nephrotoxins, renally dose meds Status: Chronic (4) Pain of right lower extremity: -negative DVT on venous duplex -pain control as needed Status: Acute (5) Nicotine dependence, cigarettes, uncomplicated: -nicotine replacement therapy Status: Chronic (6) Marijuana use: Status: Chronic Additional A&P Information -Obesity: BMI-34 kg/m2 -prior hx of EtOH abuse and methamphetamine abuse -hx of nephrolithiasis requiring R ureteral stent placement and removal as well as ESWL -mild hypokalemia-resolved, replace K as needed -cardiac diet as tolerated -DVT ppx with lovenox -Dispo: home -Code status: FULL code Attestations Medical Necessity Statement*: Discharge home if BP controlled. Time Spent in Patient Care: 16 - 35 minutes (>than 50% of time spent in counselling and/or direct pt care on unit) . Coding Level of Care Code Acute Surgical Pathologist for [facility] Fwd Exam Comprehensive Diagnoses Congestive heart failure I50.23 Heart failure chronicity: acute on chronic Heart failure type: systolic Hypertension I15.0 Hypertension type: renovascular hypertension Chronic kidney disease, stage II (mild) N18.2 Pain of right lower extremity M79.604 Nicotine dependence, cigarettes, uncomplicated F17.210 Marijuana use F12.90
[2019-09-02] MEDS: hyDRALAzine 20 mg/mL INJ 1 mL 10 MG IVP (14:04)
--- NOTE | 2019-09-02 15:06 | P.DS_ITS ---
Discharge Providers Date of Admission: 09/01/19 00:59 Date of Discharge: September 02, 2019 Attending Provider at Admission: Sarah Trent MD Attending Provider at Discharge: Amanda Workman MD Diagnoses at Discharge Discharge Diagnosis (1) Congestive heart failure: Status: Chronic Problem details: -Has acutely decompensated chronic systolic CHF as evidenced by increased dyspnea, BNP elevation (1246) -Last echo done in 08/2017 showed an ejection fraction of 25% with grade 3 diastolic dysfunction and moderate TR. Repeat echo: EF=35%, diffuse LV hypokinesia, mildly dilated LV, mild LVH, trace to mild MR, trace TR -Noted cardiomegaly on chest x-ray -On IV diuresis with Lasix -Continue to monitor ins and outs, daily weights -Cardiac diet as tolerated; fluid restriction (2 L/day) -Continued monitoring of vital signs -Supplemental oxygen as needed, continue to monitor respiratory status -Telemetry monitoring Qualifiers: Heart failure chronicity: acute on chronic Heart failure type: systolic Qualified Code(s): I50.23 - Acute on chronic systolic (congestive) heart failure (2) Hypertension: Status: Chronic Problem details: -presented with hypertensive urgency likely due to medication non-compliance (no insurance and cannot afford meds) -has had issues with high BP in the past -continue ACEi, lasix; would avoid aggressive BP control -continued monitoring of BP Qualifiers: Hypertension type: renovascular hypertension Qualified Code(s): I15.0 - Renovascular hypertension (3) Chronic kidney disease, stage II (mild): Status: Chronic Problem details: -has known CKD stage 2; baseline Cr appears to be around 1-1.3 -RAMÓN now resolved -on IV diuresis -continue to monitor renal function -avoid nephrotoxins, renally dose meds (4) Pain of right lower extremity: Status: Acute Problem details: -negative DVT on venous duplex -pain control as needed (5) Nicotine dependence, cigarettes, uncomplicated: Status: Chronic (6) Marijuana use: Status: Chronic Other Information Additional DC diagnoses/information: -Obesity: BMI-34 kg/m2 -prior hx of EtOH abuse and methamphetamine abuse -hx of nephrolithiasis requiring R ureteral stent placement and removal as well as ESWL -mild hypokalemia-resolved, replace K as needed Reason for Visit Reason for Visit: Reason For Visit: Shortness of breath Hospital Course Hospital Course: Patient was admitted to the medical surgical floor and started on IV diuresis with close monitoring of his hemodynamic status as he was quite hypertensive on presentation. Fortunately patient tends to be quite hyper tensive at baseline based on review of previous visit vital signs. He responded well and quickly to IV diuresis, repeat echo showed some improvement in his ejection fraction from 25% to 35% with noted diffuse left ventricular hypokinesia, mild LVH. He will require further ischemic work-up including angiogram at some point as this has not been done. We did not target aggressive blood pressure control given patient's history and likelihood of adverse outcome with tight control of blood pressure. I added Coreg and increased dose of SRI inhibitor for more optimal blood pressure control and given his underlying chronic systolic CHF. Due to lack of medical insurance patient has a difficult time affording his medications, prescriptions have been sent to [facility] on discharge and financial application information has been provided by case management. Ideally, he should continue to monitor his blood pressure at home and review this with PCP for appropriate medication adjustments as needed. Medication compliance is strongly recommended. Discharge Summary: -Patient to follow up with primary care provider once care is established. He will need referral to cardiology for evaluation of further workup for systolic CHF. Physical Exam Const: COMMON NORMALS: no apparent distress and oriented x3 GENERAL APPEARANCE: cooperative and comfortable ORIENTATION/CONSCIOUSNESS: Yes awake HENMT: COMMON NORMALS: normocephalic, head/scalp atraumatic, hearing grossly normal bilaterally and moist oral mucous membranes HEAD & SCALP: normocephalic and atraumatic Eye: COMMON NORMALS: PERRL, EOMs intact bilaterally and conjunctivae normal CONJUNCTIVA: Yes conjunctivae normal PUPIL: Yes PERRL Neck/C-Spine: COMMON NORMALS: full ROM GENERAL: Yes normal visual inspection and Yes trachea midline Resp: COMMON NORMALS: normal respiratory effort, no retractions, no use of accessory muscles and clear to auscultation bilaterally EFFORT & INSPECTION: Yes able to speak in complete sentences, Yes symmetric chest movement and No tachypneic AUSCULTATION: clear to auscultation bilaterally Cardio: COMMON NORMALS: regular rate, regular rhythm, S1 normal heart sound, S2 normal heart sound and no murmurs RATE: regular rate RHYTHM: regular rhythm HEART SOUNDS: S1 normal and S2 normal GI: COMMON NORMALS: normal to inspection, nondistended, normoactive bowel sounds, soft to palpation and non-tender PALPATION: Yes soft Extremity: COMMON NORMALS: normal to inspection, full ROM, no clubbing, cyanosis or edema and no pedal edema Neuro: COMMON NORMALS: oriented x3, moves all extremities, no focal motor deficits, no sensory deficits noted and gait normal Psych: COMMON NORMALS: mental status grossly normal, thought process normal, cooperative, affect normal and speech normal SPEECH: Yes normal speech THOUGHT PROCESS: normal thought process Skin: COMMON NORMALS: no rashes or lesions noted, no jaundice, no petechiae and no mottling GENERAL SKIN EXAM: no rashes or lesions noted Discharge Data Data Completed and Pending: Completed Studies During Hospitalization Category Date Time Status XR chest 1V shantelle ble [id number] Urgent Exams 08/31/19 23:03 Completed CV echo complete* [id number] Routine Ultrasound 09/01/19 09:16 [place] [id number] Urgent Ultrasound 08/31/19 23:10 Completed Pending at discharge Category Date Time Status Basic Metabolic P franck AM LABS Lab 09/03/19 04:00 Ordered Basic Metabolic P franck AM LABS Lab 09/04/19 04:00 Ordered Labs from last 24 hours 09/02/19 09/02/19 09/01/19 05:14 05:14 12:30 WBC 11.8 H RBC 5.24 Hgb 16.3 Hct 48.7 MCV 92.9 MCH 31.1 MCHC 33.5 RDW 12.8 Plt Count 345 MPV 10.9 H Neut % (Auto) 55.1 Lymph % (Auto) 29.3 [place] % (Auto) 8.2 Eos % (Auto) 6.4 Baso % (Auto) 0.7 Neut # (Auto) 6.5 Lymph # (Auto) 3.5 [place] # (Auto) 1.0 H Eos # (Auto) 0.8 Baso # (Auto) 0.1 Nucleated RBC % (a uto) 0 Nucleated RBCs # 0.0 Sodium 140 Potassium 3.6 Chloride 101 Carbon Dioxide 24 Anion Gap 18.6 BUN 21 H Creatinine 1.3 H GFR Calculation 62.1 L Glucose 104 Calculated Osmolal ity 287 Calcium 9.7 Phosphorus 3.8 Magnesium 2.3 Urine Color Yellow Urine Appearance Clear Urine pH 7 Ur Specific Gravit y 1.010 Urine Protein Neg Urine Glucose (UA) Norm Urine Ketones Negative Urine Blood 3+ H Urine Nitrate Negative Urine Bilirubin Neg Urine Urobilinogen Norm Ur Leukocyte Dalila ase Negative Urine RBC 5-10 H Urine WBC 0-4 H Ur Squamous Epith Cells 0-4 H Urine Bacteria 1+ H Vitals: Last Vital Signs Temp 97.6 F 09/02/19 11:40 Pulse 76 09/02/19 14:42 Resp 16 09/02/19 14:42 BP 148/89 09/02/19 14:42 Pulse Ox 97 09/02/19 14:42 Discharge Plan Discharge Patient Disposition: Home, Self-Care Condition: Stable Prescriptions: New aspirin 81 mg Tablet,Delayed Release (Dr/Ec) 81 mg PO DAILY 30 Days Qty: 30 RF: 0 lisinopril 10 mg Tablet 20 mg PO DAILY 30 Days Qty: 60 RF: 0 Lasix 40 mg tablet 40 mg PO QAM 30 Days Qty: 30 RF: 0 Coreg 3.125 mg tablet 3.125 mg PO BID 30 Days Qty: 60 RF: 0 potassium chloride 10 mEq Tablet Extended Release 20 meq PO DAILY 30 Days Qty: 60 RF: 0 No Action No Known Home Medications RF: 0 Discharge Orders: Discharge Order (Routine); Ordered 09/02/19 Ordered By: Amanda Workman Referrals: Marci Desai, LE[employer] RECOVER[employer] [Nurse Practitioner] - 4-7 days (To establish care and to follow up post hospital discharge. Patient will need cardiology referral for further evaluation of chronic systolic CHF. ) Discharge Diet: Cardiac Discharge Activity: Resume usual activity Discharge Attestations Time Spent in Discharge Care*: greater than 30 min Specific Discharge Activities: Specific discharge activities: educating patient, discussing with cyanide case hardener/social workers/dc planners, documenting/other paperwork and evaluating patient/reviewing data Status at Discharge: Cognitive status at discharge: cognitively intact , Functional status at discharge: independent ambulation Overall status at discharge: patient is back to baseline Quality Metrics Clinical Quality Measures During this hospital stay, did patient experience: None Coding Level of Care Code Acute Digital Press Operator for Yaneth Fw[facility] Diagnoses Congestive heart failure I50.23 Heart failure chronicity: acute on chronic Heart failure type: systolic Hypertension I15.0 Hypertension type: renovascular hypertension Chronic kidney disease, stage II (mild) N18.2 Pain of right lower extremity M79.604 Nicotine dependence, cigarettes, uncomplicated F17.210 Marijuana use F12.90
== END 2019-09-02 16:00 | disposition home or self-care (01) ==
LOC: ER 23:06 → MEDSURG 09-01 01:14
PROVIDERS: Physician Assistant; Admitting Provider Hospitalist; Emergency Provider Emergency Medicine; Visit Provider Family Medicine
DX: I50.23 Acute on chronic systolic (congestive) heart failure (principal); I15.0 Renovascular hypertension; I13.0 Hypertensive heart and chronic kidney disease with heart failure and stage 1 through stage 4 chronic kidney disease, or unspecified chronic kidney disease; N18.2 Chronic kidney disease, stage 2 (mild); F12.90 Cannabis use, unspecified, uncomplicated; F17.210 Nicotine dependence, cigarettes, uncomplicated; E66.9 Obesity, unspecified; Z68.30 Body mass index [BMI] 30.0-30.9, adult
CPT/HCPCS: 12345; 36415; 71045; 80048; 80053; 81001; 83735; 83880; 84100; 84484; 85025; 85378; 93005; 93306; 93970; 96372; 96374; 96375; 99282; 99285; G0378; J0360; J1650; J1940

== ENCOUNTER → 2020-08-08 13:07 | Outpatient (BNVA) | payer BC, SELFPAY | PROVIDERS: PCP Nurse Practitioner Family; Visit Provider Nurse Practitioner | DX: J02.0 Streptococcal pharyngitis (principal) | CPT/HCPCS: 87880 ==

== ENCOUNTER 2020-12-24 13:08 | Emergency (ER) | payer BC, SELFPAY ==
[2020-12-24 13:16] VITALS: BP 197/120; PULSE 72; RESP 19; TEMP 36.4; O2SAT 100
--- NOTE | 2020-12-24 14:50 | ED_ITS ---
HPI - General Adult General: Chief complaint: General Medical Stated complaint: high blood pressure Time Seen by Provider: 12/24/20 14:41 Source: patient Mode of arrival: ambulatory Limitations: no limitations History of Present Illness: HPI narrative: Patient is a 40-year-old male who presents to ED today for concern secondary to elevated blood pressure readings. Patient tells me he was diagnosed with hypertension several years ago. He states he normally takes lisinopril 20 mg daily. States he ran out of his medications approximately a week ago. He followed up with his PCP on Friday for a refill and states they upped his lisinopril to 20 mg twice daily. Patient states he took this dose yesterday but it has not seemed to help. He denies a headache, visual changes, chest pain, shortness of breath, palpitations. He does admit to some nasal congestion and fatigue. Associated symptoms: Deny chest pain, confusion, dyspnea, headache(s), malaise, nausea, rash, palpitations, syncope or vomiting Review of Systems Const: Reports: fatigue; Denies: fever(s), chills, body aches, change in appetite, change in weight or malaise Eyes: Denies: change in vision, blurry vision, blind spots, photophobia, floaters or seeing flashes ENMT: Reports: nasal congestion; Denies: throat pain, odynophagia, ear or mastoid pain or sinus pain Card: Denies: chest pain, palpitations, irregular heart rhythm, edema, lightheadedness, syncope or pre-syncope Resp: Denies: dyspnea, productive cough, non-productive cough, pain on inspiration or chest congestion GI: Denies: abdominal pain, nausea, vomiting or diarrhea Musc: Denies: neck pain, back pain, extremity pain or joint pain Skin/Breast: Denies: rash Neuro: Denies: headache(s), numbness in extremities, weakness in extremities, sensory changes, difficulty walking, dizziness, confusion, behavioral changes, Slurred speech present or difficulty communicating thoughts PFS ED PFSH: Medical History Congestive heart failure -Has acutely decompensated chronic systolic CHF as evidenced by increased dyspnea, BNP elevation (1246) -Last echo done in 08/2017 showed an ejection fraction of 25% with grade 3 diastolic dysfunction and moderate TR. Repeat echo: EF=35%, diffuse LV hypokinesia, mildly dilated LV, mild LVH, trace to mild MR, trace TR -Noted cardiomegaly on chest x-ray -On IV diuresis with Lasix -Continue to monitor ins and outs, daily weights -Cardiac diet as tolerated; fluid restriction (2 L/day) -Continued monitoring of vital signs -Supplemental oxygen as needed, continue to monitor respiratory status -Telemetry monitoring Hypertension -presented with hypertensive urgency likely due to medication non-compliance (no insurance and cannot afford meds) -has had issues with high BP in the past -continue ACEi, lasix; would avoid aggressive BP control -continued monitoring of BP Kidney stones Surgical History H/O lithotripsy Family History Family/Other Cancer Stroke Mother Hypertension Other CAD (coronary artery disease) Social History Smoking and tobacco status: current every day smoker cigarettes [ Other cigarette details: ~1/2 ppd ] Alcohol intake: current Alcohol intake frequency: few times a week Physical Exam Const: COMMON NORMALS: no acute distress, average body habitus, patient oriented x3, no limitations, healthy appearing, alert and well nourished GENERAL APPEARANCE: cooperative ORIENTATION/CONSCIOUSNESS: Yes awake, Yes oriented to person, Yes oriented to place and Yes oriented to time HENMT: COMMON NORMALS: normocephalic and atraumatic HEAD & SCALP: normal to inspection, normocephalic and atraumatic Neck/C-Spine: COMMON NORMALS: full ROM, no lymphadenopathy and no meningeal signs Resp: COMMON NORMALS: normal respiratory effort and clear to auscultation bilaterally AUSCULTATION: clear to auscultation bilaterally Cardio: COMMON NORMALS: regular rate and regular rhythm RATE: regular rate RHYTHM: regular rhythm GI: COMMON NORMALS: Normal to inspection, nondistended, normoactive bowel sounds present, Soft to palpation, non-tender, No hepatosplenomegaly present and no masses PALPATION: Yes Soft to palpation and Yes No hepatosplenomegaly present Extremity: GENERAL: Yes normal exam except as noted Neuro: BROOKE COMA SCALE: document GCS findings Brooke coma scale eye opening: Spontaneous Amado coma scale verbal response: Orientated Brooke coma scale motor response: Obey commands Amado coma scale total score: 15 COMMON NORMALS: patient oriented x3, CN's II-XII intact bilaterally, moves all extremities, no focal motor deficits, no sensory deficits noted and gait normal SENSORIUM/ORIENTATION: Yes alert, Yes oriented to person, Yes oriented to place and Yes oriented to time MENINGEAL SIGNS: Yes no meningeal signs Skin: COMMON NORMALS: no rashes or lesions noted GENERAL SKIN EXAM: no rashes or lesions noted Course Vital Signs: Vital signs: Vital Signs Temperature 97.6 F 12/24/20 13:16 Pulse Rate 72 12/24/20 16:52 Respiratory Rate 15 12/24/20 16:52 Blood Pressure 165/123 12/24/20 16:52 Pulse Oximetry 97 12/24/20 16:52 MDM - General Adult MDM Narrative: Medical decision making narrative: Pts BP did improve here slightly. Ultimately he has no symptoms related to his hypertension thus aggressive reduction from the ED is not indicated. He just had his Lisinopril dose doubled one day ago by his PCP. At this time I would not make any additional changes as we need to give this dose enough time to show clinical benefit. Recommend keeping a BP log for the next week. If it is still running high then PCP can adjust dosing based on that. Pt was noted to have fairly elevated LFTs. He states he is aware of this and PCP have mentioned they will work up on an outpatient basis. He has no abdominal pain, N/V. His tbili is normal. He did mention a concern for hepatitis but states his PCP stated they were going to run this panel. At this time patient is stable for DC with instructions to follow up with PCP in the next 1-2 weeks. Return to ED precautions given. Lab Data: Labs: Lab Results 12/24/20 12/24/20 12/24/20 Range/Units 10:00 15:32 15:32 WBC 10.0 (4.0-10.0) 10^3/ uL RBC 5.28 (4.1-5.3) 10^6/u L Hgb 17.0 H (11.7-16.6) g/dL Hct 50.4 (42.0-52.0) % MCV 95.5 H (80-94) fl MCH 32.2 (28.0-34.0) pg MCHC 33.7 (30.0-36.0) g/dL RDW 13.0 (12.1-15.1) % Plt Count 270 (130-400) 10^3/c mm MPV 10.8 H (7.4-10.4) fL Neut % (Auto) 60.7 % Lymph % (Auto) 22.9 % [place] % (Auto) 11.1 % Eos % (Auto) 4.0 % Baso % (Auto) 0.7 % Neut # (Auto) 6.07 (1.8-7.7) 10^3/u L Lymph # (Auto) 2.3 (0.8-4.8) 10^3/u L [place] # (Auto) 1.1 H (0.2-0.9) 10^3/u L Eos # (Auto) 0.4 (0.0-0.8) 10^3/u L Baso # (Auto) 0.1 (0.0-0.1) 10^3/u L Nucleated RBC % (a uto) 0 % Nucleated RBCs # 0.0 /100WBC Sodium 137 (136-145) mmol/L Potassium 3.7 (3.5-5.1) mmol/L Chloride 104 (98-107) mmol/L Carbon Dioxide 25 (22-29) mmol/L Anion Gap 11.7 (5-19) BUN 16 (6-20) mg/dL Creatinine 1.0 (0.7-1.2) mg/dL GFR Calculation 83.6 L (90-130) mL/min Glucose 162 H (65-115) mg/dL Calculated Osmolal ity 289 (285-295) mOsm/k g Calcium 8.5 (8.5-10.5) mg/dL Total Bilirubin 0.7 (0.15-1.2) mg/dL AST 210 H (0-40) U/L ALT 570 H (0-41) U/L Alkaline Phosphata se 135 H (40-130) IU/L Total Protein 6.2 L (6.6-8.7) g/dL Albumin 3.8 (3.5-5.2) g/dL Globulin 2.4 (1.3-4.6) g/dL Urine Color Dark yellow (Yellow) Urine Appearance Clear (CLEAR) Urine pH 6 (5-7) Ur Specific Gravit y 1.020 (1.005-1.030) Urine Protein Neg (Negative) Urine Glucose (UA) Norm (Normal) Urine Ketones Negative (Negative) Urine Blood Neg (Negative) Urine Nitrate Negative (Negative) Urine Bilirubin 1+ H (Negative) Urine Urobilinogen 8 H (Negative) mg/dL Ur Leukocyte Dalila ase Negative (Negative) SARS-CoV-2 Ag (Rap id) (Negative) 12/24/20 Range/Units 15:35 WBC (4.0-10.0) 10^3/ uL RBC (4.1-5.3) 10^6/u L Hgb (11.7-16.6) g/dL Hct (42.0-52.0) % MCV (80-94) fl MCH (28.0-34.0) pg MCHC (30.0-36.0) g/dL RDW (12.1-15.1) % Plt Count (130-400) 10^3/c mm MPV (7.4-10.4) fL Neut % (Auto) % Lymph % (Auto) % [place] % (Auto) % Eos % (Auto) % Baso % (Auto) % Neut # (Auto) (1.8-7.7) 10^3/u L Lymph # (Auto) (0.8-4.8) 10^3/u L [place] # (Auto) (0.2-0.9) 10^3/u L Eos # (Auto) (0.0-0.8) 10^3/u L Baso # (Auto) (0.0-0.1) 10^3/u L Nucleated RBC % (a uto) % Nucleated RBCs # /100WBC Sodium (136-145) mmol/L Potassium (3.5-5.1) mmol/L Chloride (98-107) mmol/L Carbon Dioxide (22-29) mmol/L Anion Gap (5-19) BUN (6-20) mg/dL Creatinine (0.7-1.2) mg/dL GFR Calculation (90-130) mL/min Glucose (65-115) mg/dL Calculated Osmolal ity (285-295) mOsm/k g Calcium (8.5-10.5) mg/dL Total Bilirubin (0.15-1.2) mg/dL AST (0-40) U/L ALT (0-41) U/L Alkaline Phosphata se (40-130) IU/L Total Protein (6.6-8.7) g/dL Albumin (3.5-5.2) g/dL Globulin (1.3-4.6) g/dL Urine Color (Yellow) Urine Appearance (CLEAR) Urine pH (5-7) Ur Specific Gravit y (1.005-1.030) Urine Protein (Negative) Urine Glucose (UA) (Normal) Urine Ketones (Negative) Urine Blood (Negative) Urine Nitrate (Negative) Urine Bilirubin (Negative) Urine Urobilinogen (Negative) mg/dL Ur Leukocyte Dalila ase (Negative) SARS-CoV-2 Ag (Rap id) Negative (Negative) Discharge Plan Discharge Patient Disposition: Home Clinical Impression: Elevated LFTs Hypertension Qualifiers: Hypertension type: essential hypertension Qualified Code(s): I10 - Essential (primary) hypertension Condition: Stable Prescriptions: No Action lisinopril 10 mg tablet 10 mg PO BID RF: 0 carvedilol 12.5 mg tablet 12.5 mg PO BID RF: 0 clindamycin HCl 300 mg capsule 300 mg PO TID 7 Days Qty: 21 RF: 0 Discharge Orders: Discharge ED (Routine); Ordered 12/24/20 Ordered By: Bethany Mcdonald Activity Restrictions/Additional Instructions: Continue the blood pressure medication regimen that was recently changed by her PCP (20 mg lisinopril twice daily) and keep a blood pressure log over the next week to follow-up with her. As we discussed your liver enzymes were elevated here-you have mentioned this is being worked up as an outpatient. You need to return to the emergency department for severe headache, visual changes, chest pain, palpitations, repetitive episodes of vomiting, or any other concerns you may have. Coding Level of Care Code ED Occupational Therapist Assistants for Yaneth Fwd Exam Comprehensive
[2020-12-24 15:24] VITALS: BP 157/95; PULSE 73; RESP 15; O2SAT 98
[2020-12-24 15:33] VITALS: BP 162/115
[2020-12-24] MEDS: cloNIDine 0.1 mg Tablet PO (15:33)
[2020-12-24 15:45] LABS: Basophils # 0.1 10^3/uL (0.0-0.1); Basophils % 0.7 %; Eosinophils # 0.4 10^3/uL (0.0-0.8); Hematocrit 50.4 % (42.0-52.0); Lymphocytes # 2.3 10^3/uL (0.8-4.8); Lymphocytes % 22.9 %; Mean Corpuscular HGB Conc 33.7 g/dL (30.0-36.0); Mean Corpuscular Hemoglobin 32.2 pg (28.0-34.0); Mean Corpuscular Volume 95.5 fl (80-94); Mean Platelet Volume 10.8 fL (7.4-10.4); Monocytes # 1.1 10^3/uL (0.2-0.9); Monocytes % 11.1 %; Neutrophils # 6.07 10^3/uL (1.8-7.7); Neutrophils % 60.7 %; Nucleated Red Blood Cells % 0 %; Platelet Count 270 10^3/cmm (130-400); Red Blood Count 5.28 10^6/uL (4.1-5.3)
[2020-12-24 16:04] LABS: SARS Covid-2 Antigen Negative (Negative)
[2020-12-24 16:11] LABS: Add Urine Microscopic? NO; Charge for UA Resulting for Rev
[2020-12-24 16:16] LABS: Bilirubin Urine 1+ (Negative); Blood Urine Neg (Negative); Glucose Urine UA Norm (Normal); Ketones Urine Negative (Negative); Leukocyte Esterase Urine Negative (Negative); Nitrate Urine Negative (Negative); Protein Urine Neg (Negative); Urine Appearance Clear (CLEAR); Urine Color Dark Yellow (Yellow); Urobilinogen Urine 8 mg/dL (Negative); pH Urine 6 (5-7)
[2020-12-24 16:18] LABS: Alanine Aminotransferase 570 U/L (0-41); Albumin Level 3.8 g/dL (3.5-5.2); Alkaline Phosphatase 135 IU/L (40-130); Anion Gap 11.7 (5-19); Aspartate Amino Transferase 210 U/L (0-40); Blood Urea Nitrogen 16 mg/dL (6-20); Calcium 8.5 mg/dL (8.5-10.5); Carbon Dioxide 25 mmol/L (22-29); Chloride 104 mmol/L (98-107); Globulin 2.4 g/dL (1.3-4.6); Glomerular Filtration Rate 83.6 mL/min (90-130); Glucose 162 mg/dL (65-115); Osmolality Calculated 289 mOsm/kg (285-295); Potassium 3.7 mmol/L (3.5-5.1); Sodium 137 mmol/L (136-145); Total Bilirubin 0.7 mg/dL (0.15-1.2); Total Protein 6.2 g/dL (6.6-8.7)
[2020-12-24] MEDS: lisinopril 10 mg Tablet PO (16:50)
[2020-12-24 16:52] VITALS: BP 165/123; PULSE 72; RESP 15; O2SAT 97
== END 2020-12-24 16:54 | disposition home or self-care (01) ==
PROVIDERS: Emergency Provider Physician Assistant
DX: I11.0 Hypertensive heart disease with heart failure (principal); I50.9 Heart failure, unspecified; R79.89 Other specified abnormal findings of blood chemistry; F17.210 Nicotine dependence, cigarettes, uncomplicated; Z20.822 Contact with and (suspected) exposure to COVID-19
CPT/HCPCS: 80053; 81003; 85025; 87426; 99283